=== PATIENT | male | born 1970 | race Caucasian/White ===

== ENCOUNTER 2019-07-18 14:33 | Observation (INO) ==
[2019-07-18 15:09] LABS: Basophils % 0.4 %; Eosinophils % 0.5 %; Hematocrit 48.4 % (37.5-50.1); Hemoglobin 16.7 g/dL (12.9-16.9); Immature Granulocytes % 0.3 % (0-4); Lymphocytes % 25.9 %; Mean Corpuscular HGB Conc 34.5 g/dL (31.6-35.5); Mean Corpuscular Hemoglobin 31.9 pg (28.0-33.3); Mean Corpuscular Volume 92.5 fL (83.0-100.0); Mean Platelet Volume 9.2 fL (9.4-12.4); Monocytes # 0.5 K/mcL (0.0-1.3); Monocytes % 6.7 %; Neutrophils # 5.1 K/mcL (1.6-8.9); Platelet Count 215 K/mcL (140-400); Red Blood Count 5.23 M/mcL (4.19-5.50); Segmented Neutrophils % 66.2 %; White Blood Count 7.7 K/mcL (4.3-11.1)
[2019-07-18 15:11] LABS: Bilirubin,Urine Negative (Negative); Blood,Urine Negative (Negative); Clarity,Urine Clear (Clear); Color,Urine Dark Yellow (Yellow); Glucose,Urine (UA) Normal (Normal); Ketones,Urine Negative (Negative); Leukocyte Esterase,Urine Negative (Negative); Nitrite,Urine Negative (Negative); PH,Urine 6.5 pH Units (5.0-8.0); Protein,Urine Negative (Neg-Trace); Specific Gravity,Urine 1.027 (1.010-1.025); Urobilinogen,Urine Normal (Normal)
[2019-07-18 15:18] LABS: Amphetamine Screen,Urine Negative ng/mL (Cutoff=1000); Barbiturate Screen,Urine Negative ng/mL (Cutoff=200); Benzodiazepines Screen,Urine Negative ng/mL (Cutoff=200); Cannabinoid Screen,Urine Negative ng/mL (Cutoff = 50); Cocaine Screen,Urine Negative ng/mL (Cutoff= 300); Opiate Screen,Urine Negative ng/mL (Cutoff=300); Phencyclidine Screen,Urine Negative ng/mL (Cutoff=25)
[2019-07-18 15:20] LABS: Estimated Average Glucose 114 mg/dl
[2019-07-18 16:02] LABS: Acetaminophen < 10 mcg/mL (10-20); BUN/Creatinine Ratio 10 (6-26); Blood Urea Nitrogen 9 mg/dL (6-20); Calcium 9.3 mg/dL (8.6-10.3); Carbon Dioxide 28 mEq/L (23-29); Chloride 105 mEq/L (98-107); Chol/HDL Ratio 5.1 (0-4.9); Cholesterol 164 mg/dL (< 200); Ethanol < 10 mg/dL (Less than 10); Glucose 107 mg/dL (70-105); HDL Cholesterol 32 mg/dL (40-59); LDL Cholesterol,Calculated 102 mg/dL (0-99); Osmolality,Calculated 291 (280-300); Potassium 3.2 mEq/L (3.5-5.1); Salicylate < 2.5 mg/dL (15.0-30.0); Sodium 141 mEq/L (136-145); Triglycerides 149 mg/dL (< 150); eGFR For African Americans > 60 (> 60); eGFR For Non-African Americans > 60 (> 60)
[2019-07-18] MEDS ORDERED: Haloperidol Lactate 5 MG/ML VIAL IM PRN (19:11)
[2019-07-18] MEDS ORDERED: *HR* LORazepam 2 MG/ML VIAL IM PRN (19:11)
[2019-07-18] MEDS ORDERED: hydrOXYzine pamoate 25 MG CAPSULE PO PRN (19:11)
[2019-07-18] MEDS ORDERED: Mag Hydrox/Al Hydrox/Simeth 30 ML UDC PO PRN (19:11)
[2019-07-18] MEDS ORDERED: *HR* LORazepam 1 MG TABLET PO PRN (19:11)
[2019-07-18] MEDS ORDERED: MOM Conc 10 ML UD.LIQ PO PRN (19:11)
[2019-07-18] MEDS ORDERED: Acetaminophen 325 MG TABLET PO PRN (20:53)
[2019-07-18] MEDS ORDERED: traZODone 50 MG TABLET PO PRN (21:00)
[2019-07-18] MEDS: Nicotine 21 MG PATCH.TD24 TD SCH (21:37)
[2019-07-19] MEDS: Nicotine 21 MG PATCH.TD24 TD SCH (08:44)
[2019-07-19 08:55] VITALS: BP 145/74
[2019-07-20] MEDS ORDERED: Nicotine 21 MG PATCH.TD24 TD SCH (09:00)
== END 2019-07-19 14:14 | disposition home or self-care (01) ==
LOC: EMEROOARM 14:33 → 1ANU 14:33
PROVIDERS: ADMIT Psychiatry & Neurology Psychiatry; ATTEND Psychiatry & Neurology Psychiatry